=== PATIENT | female | born 1960 | race Caucasian/White ===

== ENCOUNTER 2016-12-03 08:41 | Emergency (ER) | payer BC, OTHER ==
--- NOTE | 2016-12-03 09:08 | EDM.PDOC ---
ED HPI GENERAL MEDICAL PROBLEM - General Chief Complaint: Cardiovascular Problem Stated Complaint: HIGH BLOOD PRESSURE Time Seen by Provider: 12/03/16 08:54 Source of Information: Reports: Patient History Limitations: Reports: No Limitations - History of Present Illness INITIAL COMMENTS - FREE TEXT/NARRATIVE: The patient presents with left sided chest pain and HTN. She said the chest pain started on or 4 days ago. It is in the left chest. It is a nagging pain. It is made worse with palpation. 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 She is not short of breath. She has no fever, chills, cough, congestion, runny nose, abdominal pain, nausea or vomiting. She has no history of heart problems. She does not smoke. She has no history of HTN but a couple days ago she took her blood pressure and it was high at 160/110. She went to the walk in clinic to get something for it and they sent her over her. She also noticed about 4 days ago some pain and edema to the ball of the right foot. She does not remember stepping on anything. 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 Denies: Cough, Fever/Chills, Headaches, Nausea/Vomiting, Shortness of Breath Chest Pain Score (Numeric/FACES): 5 - Related Data Allergies Allergy/AdvReac Type Severity Reaction Status Date / Time No Known Allergies Allergy Verified 12/03/16 08:57 Home Meds: Home Meds Hydrochlorothiazide 25 mg PO DAILY #30 tablet 12/03/16 [Rx] Simvastatin [Zocor] 10 mg PO DAILY 12/03/16 [History] Past Medical History HEENT History: Reports: Impaired Vision Cardiovascular History: Reports: High Cholesterol [employer]INK[employer]CH[employer]IAN History: Reports: Social & Family History - Tobacco Use Smoking Status *Q: Former Smoker Used Tobacco, but Quit: Yes Month Tobacco Last Used: 13 years ago - Caffeine Use Caffeine Use: Reports: Coffee, Soda, Tea - Recreational Drug Use Recreational Drug Use: No ED ROS GENERAL - Review of Systems Review Of Systems: See Below Constitutional: Reports: No Symptoms HEENT: Reports: No Symptoms Respiratory: Reports: No Symptoms Cardiovascular: Reports: Chest Pain Endocrine: Reports: No Symptoms GI/Abdominal: Reports: No Symptoms : Reports: No Symptoms Musculoskeletal: Reports: No Symptoms Skin: Reports: No Symptoms ED EXAM, GENERAL - Physical Exam Exam: See Below Exam Limited By: No Limitations General Appearance: Alert, No Apparent Distress Ears: Normal External Exam Nose: Normal Inspection Head: Atraumatic, Normocephalic Neck: Normal Inspection Respiratory/Chest: No Respiratory Distress, Lungs Clear, Normal Breath Sounds Cardiovascular: Regular Rate, Rhythm, No Edema, No Murmur GI/Abdominal: Soft, Non-Tender, No Organomegaly, No Mass Back Exam: Normal Inspection Extremities: Normal Inspection Neurological: Alert, Oriented, No Motor/Sensory Deficits Course - Vital Signs Last Recorded V/S: Last Vital Signs Temp 98.0 F 12/03/16 08:54 Pulse 72 12/03/16 10:00 Resp 17 12/03/16 10:00 BP 151/95 H 12/03/16 09:51 Pulse Ox 94 L 12/03/16 10:00 - Orders/Labs/Meds Orders: Active Orders 24 hr Category Date Time Status Cardiac Monitoring [RC] . DIRECTED Care 12/03/16 09:01 Active EKG Documentation Completion [RC] STAT Care 12/03/16 09:02 Active Chest 1V Frontal [CR] Stat Exams 12/03/16 09:02 Taken Foot 2V Rt [CR] Stat Exams 12/03/16 09:02 Taken Labs: Laboratory Tests 12/03/16 12/03/16 12/03/16 Range/Units 09:12 09:12 09:12 WBC 6.53 (3.98-10.04) K/mm3 RBC 4.59 (3.98-5.22) M/mm3 Hgb 14.7 (11.2-15.7) gm/L Hct 43.2 (34.1-44.9) % MCV 94.1 (79.4-94.8) fl MCH 32.0 (25.6-32.2) pg MCHC 34.0 (32.2-35.5) g/dl RDW Std Deviation 43.8 (36.4-46.3) fL Plt Count 265 (182-369) K/mm3 MPV 9.1 L (9.4-12.3) fl Neut % (Auto) 48.3 (34.0-71.1) % Lymph % (Auto) 37.2 (19.3-51.7) % Owen % (Auto) 10.1 (4.7-12.5) % Eos % (Auto) 4.0 (0.7-5.8) Baso % (Auto) 0.2 (0.1-1.2) % Neut # (Auto) 3.16 (1.56-6.13) K/mm3 Lymph # (Auto) 2.43 (1.18-3.74) K/mm3 Owen # (Auto) 0.66 H (0.24-0.36) K/mm3 Eos # (Auto) 0.26 (0.04-0.36) K/mm3 Baso # (Auto) 0.01 (0.01-0.08) K/mm3 D-Dimer, Quantitative 0.30 (0.19-0.59) mg/L Sodium 140 (136-145) mEq/L Potassium 4.0 (3.5-5.1) mEq/L Chloride 105 (98-107) mEq/L Carbon Dioxide 28 (21-32) mEq/L Anion Gap 11.0 (5-15) BUN 24 H (7-18) mg/dL Creatinine 0.9 (0.55-1.02) mg/dL Est Cr Clr Drug Dosing 56.36 mL/min Estimated GFR (MDRD) > 60 (>60) mL/min BUN/Creatinine Ratio 26.7 H (14-18) Glucose 102 (74-106) mg/dL Calcium 8.9 (8.5-10.1) mg/dL Total Bilirubin 0.4 (0.2-1.0) mg/dL AST 21 (15-37) U/L ALT 39 (14-59) U/L Alkaline Phosphatase 93 (46-116) U/L Troponin I < 0.017 (0.00-0.056) ng/mL Total Protein 7.0 (6.4-8.2) g/dl Albumin 3.9 (3.4-5.0) g/dl Globulin 3.1 gm/dL Albumin/Globulin Ratio 1.3 (1-2) - Re-Assessments/Exams Free Text/Narrative Re-Assessment/Exam: 12/03/16 09:08 I ordered an EKG, CXR, and labs. 12/03/16 10:14 Her EKG shows a NSR with no acute changes. Her CXR looks good. Her CBC and CMP look good. Her troponin and D-dimer are negative. I will give her a dose of HCTZ here and a prescription for more. Departure - Departure Time of Disposition: 10:20 Disposition: Home, Self-Care 01 Condition: Good Clinical Impression: Chest wall pain Hypertension Qualifiers: Hypertension type: unspecified Qualified Code(s): I10 - Essential (primary) hypertension Prescriptions: Hydrochlorothiazide 25 mg PO DAILY #30 tablet Referrals: Diane Eastman PA [Physician Systems Mgr] - 1 Week Forms: ED Department Discharge Additional Instructions: Take the hydrochlorothiazide daily for your blood pressure. Try some ice and elevation for the swelling in your foot and follow up with your doctor in 1 week. Take motrin or aleve for the pain in your chest. Please return if you have more pain, shortness of breath, nausea or get sweaty with it. - My Orders Last 24 Hours: My Active Orders 12/03/16 09:01 Cardiac Monitoring [RC] . DIRECTED 12/03/16 09:02 EKG Documentation Completion [RC] STAT Chest 1V Frontal [CR] Stat Foot 2V Rt [CR] Stat - Assessment/Plan Last 24 Hours: My Active Orders 12/03/16 09:01 Cardiac Monitoring [RC] . DIRECTED 12/03/16 09:02 EKG Documentation Completion [RC] STAT Chest 1V Frontal [CR] Stat Foot 2V Rt [CR] Stat
[2016-12-03] MEDS ORDERED: Hydrochlorothiazide 25 MG Tab PO ONE (10:16)
[2016-12-03 10:51] VITALS: BP 146/100
--- NOTE | 2016-12-07 10:47 | CR ---
Right foot: Three views of the right foot were obtained. Comparison: No previous study. Small plantar spur is seen. Minimal spurring and calcification is seen at the attachment of the Achilles tendon to the calcaneus. Minimal degenerative spurring is noted within the first MTP joint. No fracture, dislocation or other bony abnormality is identified. Impression: 1. Small calcaneal spurs and mild degenerative change. 2. No additional abnormality is appreciated on right foot study. No opaque foreign object is identified. Diagnostic code #2
--- NOTE | 2016-12-07 10:47 | CR ---
Chest: Frontal view of the chest was obtained. Comparison: No previous study. Slight atelectasis is seen within both lung bases. Lungs otherwise are clear. Heart size and mediastinum are normal. Bony structures are grossly intact. Impression: 1. Slight bibasilar atelectasis. Nothing acute is appreciated on frontal chest x-ray. Diagnostic code #2
== END 2016-12-03 10:53 | disposition home or self-care (01) ==
LOC: JD.ED 08:41
DX: R07.89 Other chest pain (principal); I10 Essential (primary) hypertension; E78.00 Pure hypercholesterolemia, unspecified; Z79.899 Other long term (current) drug therapy; Z87.891 Personal history of nicotine dependence
CPT/HCPCS: 36415; 71010; 73620; 80053; 84484; 85025; 85379; 93005; 99285; A9270; 99284